=== PATIENT | female | born 1990 | race Two or more races ===

== ENCOUNTER 2016-04-02 05:35 | Emergency (ER) | payer OTHER ==
[2016-04-02 06:19] LABS: PH,URINE 6.5 (5.0-8.0); SPECIFIC GRAVITY 1.015 (1.001-1.030); URINE BILIRUBIN NEGATIVE (NEGATIVE); URINE BLOOD TRACE (NEGATIVE); URINE GLUCOSE (UA) NEGATIVE (NEGATIVE); URINE LEUKOCYTE ESTERASE 1+ (NEGATIVE); URINE NITRITE NEGATIVE (NEGATIVE); URINE PROTEIN TRACE (NEGATIVE); URINE UROBILINOGEN NORMAL (0-1 mg/dl)
[2016-04-02 06:22] LABS: URINE APPEARANCE HAZY; URINE COLOR YELLOW
[2016-04-02 06:33] LABS: URINE BACTERIA 2+; URINE WBC >100 /hpf
[2016-04-02 07:01] LABS: HCG,QUALITATIVE URINE NEGATIVE
[2016-04-03 15:01] LABS: CHLAMYDIA BD Negative (Negative); N.GONORRHOEAE BD Negative (Negative); SOURCE Urine (())
== END 2016-04-02 07:14 | disposition home or self-care (01) ==
LOC: ED 05:35
DX: N39.0 Urinary tract infection, site not specified (principal)